=== PATIENT | female | born 2000 | race Caucasian/White ===

== ENCOUNTER 2024-01-08 20:42 | Emergency (ER) | payer OTHER, SELFPAY ==
[2024-01-08 20:45] VITALS: BP 141/96
[2024-01-08 20:50] VITALS: BP 141/96
[2024-01-08 20:53] VITALS: BP 140/83
[2024-01-08 21:00] VITALS: BP 147/108
[2024-01-08 21:01] VITALS: BMI 23.9
[2024-01-08] MEDS: DECADRON 10 MG IV (21:06)
[2024-01-08] MEDS: BENADRYL 50 MG IV (21:06)
[2024-01-08] MEDS: ADRENALIN 0.3 MG IM (21:06)
[2024-01-08] MEDS: PEPCID 20 MG IV (21:06)
[2024-01-08] MEDS: VENTOLIN NEBULES 2.5 MG INH (21:06)
[2024-01-08] MEDS: NSS 1000 IV (21:07)
[2024-01-08] MEDS: REGLAN 10 MG IV (21:14)
--- NOTE | 2024-01-08 21:16 | ED.GENMED ---
History of Present Illness
General
Chief Complaint: Allergic Reaction
Source: patient
Exam Limitations: clinical condition
Time Seen by Provider: 01/08/24 20:56
Nursing documentation reviewed up to this point in time: agreed with
History of Present Illness
History of Present Illness:
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 She states that she had a taco and developed red eyes shortness of breath, tingling, near syncope. She states that these symptoms are what she experiences
preanaphylactic. She does have an EpiPen but did not have it with her.
Phy Exam
General Physical Exam
General Presentation: severe distress
General age: appears stated age
General Skin: warm and flushed
General Habitus: normal
General Mental: alert, anxious and tearful
General Hydration: appears well hydrated
ENT Exam
ENT Exam: EOMI, neck supple and swallowing well
Eye Exam
Eye Exam: PERRL and EOMI
Eyelid Exam: red and inflamed: Bilateral and edematous: Bilateral
Cardiovascular Exam
Cardiovascular Exam: tachycardia
Pulmonary Exam
Pulmonary Exam: generalized wheezing and respiratory distress
Oxygen Status: oxygen 2 liters via NC
Cough: no cough
Respirations: mild increase in effort
Gastrointestinal Exam
Gastrointestinal Exam: normal bowel sounds, non tender and soft
Neurological Exam
Neurological Exam: alert and oriented x3
Musculoskeletal Exam
Musculoskeletal Exam: full ROM
Skin Exam
Skin Exam: normal color and warmth
Psychiatric Exam
Psychiatric Exam: anxious
Course
Orders/Labs/Results
Orders:
Orders
01/08/24 21:01
Cardiac Monitoring- Treatment ONCE
0.9% Sodium Chloride 1000 ml [Nss] 1,000 ml IV BOLUS
Albuterol Nebs [Ventolin Nebules] 2.5 mg INH R NOW STA
Dexamethasone Sod Phosphate [Decadron] 10 mg IV NOW STA
Diphenhydramine [Benadryl] 50 mg IV NOW STA
EPINEPHrine PF [Adrenalin] 0.3 mg IM NOW STA
Famotidine [Pepcid] 20 mg IV NOW STA
Peak Flow Rate [RESP] Urgent
Quantity: 1
Pre-Bronchodilator: Yes
Post Bronchodilator: Yes
Special Instructions: Pre and Post Peak Flow before and after Bronchodilator
01/08/24 21:13
Metoclopramide [Reglan] 10 mg .ROUTE .STK-MED ONE
Metoclopramide [Reglan] 10 mg IV NOW STA
01/08/24 21:29
Complete Blood Count/With Diff Urgent
Comprehensive Metabolic Panel Urgent
Abnormal Lab Results
01/08/24
21:29
RBC 4.04 L 10^6/uL
(4.20-5.40)
Hct 34.0 L %
(37.0-47.0)
RDW 11.2 L %
(11.5-14.5)
Potassium 3.4 L mmol/L
(3.5-5.1)
Carbon Dioxide 18 L mmol/L
(22-30)
BUN 18 H mg/dl
(7-17)
Glucose 101 H mg/dl
(70-99)
01/08/24 21:29
01/08/24 21:29
Vital Signs
Initial and Last Documented VS:
Initial Vital Signs
Temp Pulse Resp BP Pulse Ox
98.3 F 112 17 141/96 100
01/08/24 20:45 01/08/24 20:45 01/08/24 20:45 01/08/24 20:45 01/08/24 20:45
Last Documented Vital Signs
Temp Pulse Resp BP Pulse Ox
98.3 F 106 21 147/108 99
01/08/24 20:50 01/08/24 21:45 01/08/24 21:45 01/08/24 21:00 01/08/24 22:00
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
Rate: tachycardiac
Interpretation: normal
Heart Rate: 126
Rhythm: sinus tachycardia
*Critical Care Note
Total Time (30-74mins, 75-104mins- exclusive of procedures): 45 (Critical care statement: A total of 45 minutes of critical care time was provided for this patient. This time is separate from time utilized to perform the aforementioned documented
procedures. Aggregate critical care time includes only time during which I was engaged in work directl)
Update Note
Update Note:
01/08/2024 2135 PM 'back in to see the patient
ED Attending Note
-
Portions of this chart may have been created with voice recognition software.� Occasional wrong word or��sound alike� substitutions may have occurred due to the inherent limitations of voice recognition software.
Discharge Plan
Departure
Patient Disposition: Home (Routine Discharge)
Date of Disposition: 01/08/24
Time of Disposition: 23:41
Patient with high blood pressure during this ER visit?: Yes
Condition: Good
Discharge Problem:
Anaphylactic reaction
Instructions: Anaphylaxis, BLOOD PRESSURE
Prescriptions:
New
diphenhydramine HCl [Benadryl] 25 mg capsule
25 mg PO TID PRN (Reason: allergy symptoms) Qty: 14 0RF
prednisone 50 mg Tablet
50 mg PO DAILY Qty: 5 0RF
epinephrine [EpiPen] 0.3 mg/0.3 mL Auto-Injector
0.3 mg IM .STAT PRN (Reason: anaphylaxis) Qty: 2 0RF
famotidine [Pepcid] 40 mg tablet
40 mg PO DAILY Qty: 14 0RF
Referrals:
Yuliana Anderson MD [Family Provider] -
Activity Restrictions/Additional Instructions:
It was a pleasure meeting you and taking part in your care. We hope for your continued healing and wellness.
Please read discharge instructions in their entirety. However, they are for general education and may not describe your exact diagnosis at discharge. Information on your ER visit and medical conditions were discussed with you along with appropriate
follow up information...
If indicated, please take your medications as instructed and indicated on discharge paperwork.
Please schedule a follow up appointment as directed. Call to schedule an appointment
Please return to the emergency department with ANY change in, persisting, or worsening of symptoms. If any of your symptoms do not improve, or persist, or become more severe within 6-12 hours, please return to the emergency department for further
care.
Please return to the emergency department if you develop a headache, neck pain/stiffness, fever greater than 100.4F, chest pain, shortness of breath, persistent nausea, vomiting, slurred speech, difficulty walking, numbness/tingling, weakness, signs
of infection or any other symptoms that are worrisome to you.
If you have any questions or concerns please do not hesitate to call the Hospital at or E-mail me directly at [email or web address]
Interventions
Interventions:
*Risk Screen - Suicide Last Done: 01/08/24 20:45
*General Assessment Last Done: 01/08/24 20:45
*Neglect/Abuse Screening Last Done: 01/08/24 20:45
ED- Fall Risk Assessment Last Done: 01/08/24 21:05
ED- Cardiac Assessment Last Done: 01/08/24 21:05
ED- Pulmonary Assessment Last Done: 01/08/24 21:05
ED-Skin Assessment Last Done: 01/08/24 21:05
Discharge Date and Time
Print Language: [id number]
[2024-01-08 21:34] LABS: % Basophils 0.2 % (0-2); % Eosinophils 1.6 % (0-6); % Immature Granulocytes 0.2 % (0-0.5); % Lymphocytes 45.1 % (20.5-51.1); % Monocytes 5.2 % (1.7-9.3); % Neutrophils 47.7 % (42.2-75.2); Absolute Eosinophils 0.1 10^3/uL (0-0.7); Absolute Lymphocytes 2.2 10^3/uL (1.2-3.4); Absolute Monocytes 0.3 10^3/uL (0.1-0.6); Absolute Neutrophils 2.4 10^3/uL (1.4-6.5); Hemoglobin 12.5 g/dL (12.0-16.0); Mean Corp Hgb Conc. 36.8 g/dL (33.0-37.0); Mean Corpuscular Hgb 30.9 pg (27.0-31.0); Mean Corpuscular Volume 84.2 fL (81.0-99.0); Mean Platelet Volume 8.7 fL (7.4-10.4); Nucleated Red Blood Cells % 0 %; Platelet Count 263 10^3/uL (130-400); Red Blood Cell Count 4.04 10^6/uL (4.20-5.40); Red Cell Dist. Width 11.2 % (11.5-14.5)
[2024-01-08 21:53] LABS: ALT (SGPT) 15 U/L (0-35); AST (SGOT) 26 U/L (14-36); Albumin 4.1 g/dl (3.5-5.0); Alkaline Phosphatase 56 U/L (38-126); Blood Urea Nitrogen 18 mg/dl (7-17); Calcium 9.2 mg/dl (8.4-10.2); Carbon Dioxide 18 mmol/L (22-30); Chloride 105 mmol/L (98-107); Estimated Creatinine Clearance 112 ml/min; Glucose 101 mg/dl (70-99); Potassium 3.4 mmol/L (3.5-5.1); Sodium 137 mmol/L (135-145); Total Bilirubin 0.2 mg/dl (0.2-1.3); Total Protein 6.6 g/dl (6.3-8.2); eGFR > 60.00
[2024-01-08 23:43] VITALS: BP 128/79
== END 2024-01-09 00:37 | disposition home or self-care (01) ==
LOC: EMR 20:42
PROVIDERS: EMERGENCY PHYSICIAN Student in an Organized Health Care Education/Training Program; FAMILY PHYSICIAN Family Medicine
DX: T78.05XA Anaphylactic reaction due to tree nuts and seeds, initial encounter (principal); X58.XXXA Exposure to other specified factors, initial encounter
CPT/HCPCS: 99291; 96374; 96375 ×3; 94640; 96372; 80053; 85025